=== PATIENT | female | born 1985 | race Two or more races ===

== ENCOUNTER 2022-04-09 22:00 | Emergency (ER) | payer OTHER, MEDICAID ==
[~2022-04-09] VITALS: Ht 162.6 cm; Wt 60.0 kg
[2022-04-09 22:50] VITALS: BP 158/67
== END 2022-04-09 22:38 | disposition left against medical advice (07) ==
LOC: EDBD 22:00 → ER 22:00
DX: F41.9 Anxiety disorder, unspecified (principal); R11.2 Nausea with vomiting, unspecified; Z53.21 Procedure and treatment not carried out due to patient leaving prior to being seen by health care provider

== ENCOUNTER 2024-06-23 12:58 | Inpatient (IN) | payer OTHER, MEDICAID ==
[~2024-06-23] VITALS: Ht 165.1 cm; Wt 61.5 kg
--- NOTE | 2024-06-23 13:05 | ED.PDOC ---
History of Present Illness HPI Comments 39-year-old female brought by paramedics because of nausea vomiting for the past 6 hours. She has been feeling weak since last night. History of lupus fibromyalgia. Her blood pressure on arrival was 136/89 with a heart rate of 94. She is not answering questions well. She feels weak unable to even stand up on her feet. Denies any other symptoms. 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 WINDOW GLASS CUTTER OFF History Social History Smoker: Non-Smoker Alcohol: Denies ETOH Use Drugs: Denies Drug Use Constitutional: reports: weakness; denies: chills, diaphoresis, fatigue, fever, malaise, sweats, others EENTM: denies: blurred vision, double vision, ear bleeding, ear discharge, ear drainage, ear pain, ear ringing, eye pain, eye redness, hearing loss, mouth pain, mouth swelling, nasal discharge, nose bleeding, nose congestion, nose pain, photophobia, tearing, throat pain, throat swelling, voice changes, others Respiratory: denies: cough, hemoptysis, orthopnea, SOB at rest, shortness of breath, SOB with excertion, stridor, wheezing, others Cardiovascular: denies: chest pain, dizzy spells, diaphoresis, Dyspnea on exertion, edema, irregular heart beat, left arm pain, lightheadedness, palpitations, PND, syncope, others Gastrointestinal: reports: nausea, vomiting; denies: abdomen distended, abdominal pain, blood streaked bowels, constipated, diarrhea, dysphagia, difficulty swallowing, hematemesis, melena, poor appetite, poor fluid intake, rectal bleeding, rectal pain, others Genitourinary: denies: abnormal vagina bleeding, burning, dyspareunia, dysuria, flank pain, frequency, hematuria, incontinence, pain, , vagina discharge, urgency, others Neurological: denies: dizziness, fainting, headache, left sided numbness, left sided weakness, numbness, paresthesia, pre-existing deficit, right sided numbness, right sided weakness, seizure, speech problems, tingling, tremors, weakness, others Musculoskeletal: denies: back pain, gout, joint pain, joint swelling, muscle pain, muscle stiffness, neck pain, others Integumetry: denies: bruises, change in color, change in hair/nails, dryness, laceration, lesions, lumps, rash, wounds, others Allergic/Immunocompromised: denies: Difficulty Healing, Frequent Infections, Hives, Itching, others Hematologic/Lymphatic: denies: anemia, blood clots, easy bleeding, easy bruising, swollen glands, others Endocrine: denies: excessive hunger, excessive sweating, excessive thirst, excessive urination, flushing, intolerance to cold, intolerance to heat, unexplained weight gain, unexplained weight loss, others Psychiatric: denies: anxiety, bipolar disorder, depression, hopeless, panic disorder, schizophrenia, sleepless, suicidal, others Physical Exam General Appearance: Moderate Distress HEENT: Normal ENT Inspection, Pharynx Normal, TMs Normal Neck: Full Range of Motion, Non-Tender, Normal, Normal Inspection Respiratory: Chest Non-Tender, Lungs Clear, No Accessory Muscle Use, No Respiratory Distress, Normal Breath Sounds Cardiovascular: No Edema, No JVD, No Murmur, No Gallop, Normal Peripheral Pulses, Regular Rate/Rhythm Breast Exam: Deferred Gastrointestinal: No Organomegaly, Non Tender, No Pulsatile Mass, Normal Bowel Sounds, Soft Genitalia: Deferred Pelvic: Deferred Rectal: Deferred Extremities: No calf tenderness, Normal capillary refill, Normal inspection, Normal range of motion, Non-tender, No pedal edema Musculoskeletal : Apperance: Normal Neurologic: Alert, No Motor Deficits, No Sensory Deficits Cerebellar Function: NOT DONE Reflexes: NOT DONE Skin: Dry, Normal Color, Warm Peripheral Pulses: 3+ Radial (R), 3+ Radial (L) Lymphatic: No Adenopathy Was a procedure done? Was a procedure done?: No Differential Dx Considerations may include: Generalized weakness Electrolyte imbalance X-Ray, Labs, Meds, VS Vital Signs Date Time Temp Pulse Resp B/P (MAP) Pulse Ox O2 Delivery O2 Flow Rate FiO2 06/23/24 15:05 99.0 103 16 148/75 (99) 99 99.0 06/23/24 15:05 103 16 99 Room Air 06/23/24 13:12 99.7 94 20 136/85 (102) 100 Lab Test 06/23/24 14:18 Range/Units White Blood Count 8.1 4.4-10.8 10^3/uL Red Blood Count 4.31 4.0-5.20 10^6/uL Hemoglobin 14.3 12.2-16.2 g/dL Hematocrit 43.4 36.0-46.0 % Mean Corpuscular Volume 100.7 H 80.0-100.0 fL Mean Corpuscular Hemoglobin 33.3 H 28.0-32.0 pg Mean Corpuscular Hemoglobin Concent 33.0 32.0-36.0 g/dL Red Cell Distribution Width 14.6 H 11.8-14.3 % Platelet Count 163 140-450 10^3/uL Mean Platelet Volume 8.2 6.9-10.8 fL Neutrophils (%) (Auto) 86.9 H 37.0-80.0 % Lymphocytes (%) (Auto) 7.8 L 10.0-50.0 % Monocytes (%) (Auto) 4.5 0.0-12.0 % Eosinophils (%) (Auto) 0.7 0.0-7.0 % Basophils (%) (Auto) 0.1 0.0-2.0 % Neutrophils # (Auto) 7.0 1.6-8.6 10 ^3/uL Lymphocytes # (Auto) 0.6 0.4-5.4 10 ^3/uL Monocytes # (Auto) 0.4 0-1.3 10 ^3/uL Eosinophils # (Auto) 0.1 0-0.8 10 ^3/uL Basophils # (Auto) 0 0-0.2 10 ^3/uL Nucleated Red Blood Cells 0.2 % Sodium Level Pending Potassium Level Pending Chloride Level Pending Carbon Dioxide Level Pending Anion Gap Pending Blood Urea Nitrogen Pending Creatinine Pending Glomerular Filtration Rate Calc Pending BUN/Creatinine Ratio Pending Serum Glucose Pending Calcium Level Pending Current Medications Medications (Trade) Dose Ordered Sig/Maria Luz Route Start Time Stop Time Status Last Admin Sodium Chloride 1,000 ml @ 1,000 mls/hr Q1H ONCE IV 06/23/24 13:15 06/23/24 14:14 DC 06/23/24 13:15 Ondansetron HCl (Zofran) 4 mg ONCE ONCE IV 06/23/24 13:15 06/23/24 13:16 DC 06/23/24 15:06 Patient alert. Complaining of generalized weakness nausea vomiting. Vitals stable. Answering all questions. History of lupus. Establish intravenous access. Was given fluids. Was given Zofran. Reviewed her previous visit. Explained to the patient. Continue monitoring. Time of 1ST Reevaluation: 13:04 Reevaluation 1ST: Unchanged Patient Education/Counseling: Diagnosis, Treatment, Prognosis Family Education/Counseling: No Family Present Departure 1 Departure Time of Disposition: 13:05 Impression: Primary Impression: Generalized weakness Additional Impression: Gastroenteritis Disposition: ADMITTED INPATIENT Admit to: Med Surg Condition: Guarded Critical Care Note Critical Care Time?: No Stability Stability form required: No Heart Score Heart Score: Heart Score Response (Comments) Value History N/A 0 EKG N/A 0 Age N/A 0 Risk Factors N/A 0 Troponin N/A 0 Total 0 NELI MCKAY MD Jun 23, 2024 13:05
[2024-06-23] MEDS: SODIUM CHLORIDE 0.9% 1,000 ML IV ONE ×2 (13:15→18:24)
[2024-06-23 14:51] LABS: Basophils # (auto) 0 10 ^3/uL (0-0.2); Basophils % (auto) 0.1 % (0.0-2.0); Eosinophils # (auto) 0.1 10 ^3/uL (0-0.8); Eosinophils % (auto) 0.7 % (0.0-7.0); Hematocrit 43.4 % (36.0-46.0); Hemoglobin 14.3 g/dL (12.2-16.2); Lymphocytes # (auto) 0.6 10 ^3/uL (0.4-5.4); Lymphocytes % (auto) 7.8 % (10.0-50.0); Mean Corpuscular Hemoglobin 33.3 pg (28.0-32.0); Mean Corpuscular Volume 100.7 fL (80.0-100.0); Monocytes # (auto) 0.4 10 ^3/uL (0-1.3); Monocytes % (auto) 4.5 % (0.0-12.0); Neutrophils % (auto) 86.9 % (37.0-80.0); Nucleated Red Blood Cells % 0.2 %; Platelet Count (auto) 163 10^3/uL (140-450); Red Blood Cells 4.31 10^6/uL (4.0-5.20); Red Cell Distribution Width 14.6 % (11.8-14.3); White Blood Cell 8.1 10^3/uL (4.4-10.8)
[2024-06-23] MEDS: ONDANSETRON HCL 4 MG/2 ML VIAL IV ONE ×2 (15:06→17:01)
[2024-06-23 15:10] LABS: Chloride 104 mmol/L (98-107); Sodium 140 mmol/L (136-145)
[2024-06-23 15:11] LABS: Anion Gap 15 (5-15); Carbon Dioxide 21 mmol/L (20-31)
[2024-06-23 15:16] LABS: BUN/Creatinine Ratio 18.9 (10.0-20.0); Blood Urea Nitrogen 18 mg/dL (9-23)
[2024-06-23 15:30] LABS: Calcium 10.4 mg/dL (8.7-10.4); Glucose 146 mg/dL (74-106)
[2024-06-23 15:31] LABS: Urine Bacteria None Seen /hpf (None Seen)
[2024-06-23 15:39] LABS: Urine Blood Negative /uL (Negative); Urine Clarity Turbid (Clear); Urine Color Light-Yellow (Yellow); Urine Protein, UAD Negative (Negative); Urine Specific Gravity 1.014 (1.001-1.035); Urine Squamous Epithelial Cell MOD /hpf (<5); Urine Urobilinogen Normal (Negative); Urine WBC 3 /HPF (0-5)
[2024-06-23] MEDS: METOCLOPRAMIDE HCL 5MG/ml INJ 2ml VIAL IV ONE (18:19)
[2024-06-23 19:03] VITALS: RESP 16
[2024-06-23 21:00] VITALS: RESP 16
[2024-06-23] MEDS: SODIUM CHLORIDE 0.9% 1,000 ML IV SCH (21:45)
[2024-06-23 21:59] LABS: Amphetamine Screen, Urine Neg (NEGATIVE); Barbiturate Scree,Urine Neg (NEGATIVE); Benzodiazephine Screen, Urine Pos (NEGATIVE); Cannabinoid Screen, Urine Pos (NEGATIVE); Cocaine Screen, Urine Neg (NEGATIVE); Opiate Scree,Urine Neg (NEGATIVE); Phencyclidine Screen, Urine Neg (NEGATIVE)
[2024-06-23] MEDS: MORPHINE SULFATE INJ 2 MG/ml SYRG IV SCH (22:25)
[2024-06-23] MEDS: PANTOPRAZOLE 40 MG/10 ML VIAL INJ IV SCH (22:25)
--- NOTE | 2024-06-23 22:49 | DVHHPRES ---
History of Present Illness Resident Creating Document: RON GOINS RESIDENT Reason for Visit: Intractable vomiting History of Present Illness 39-year-old female with past medical history of lupus diagnosed in 2011, fibromyalgia, Aldana syndrome, presented to ED with acute onset of severe vomiting and abdominal pain after consuming Hummus from a [employer] yesterday afternoon. Symptoms began this morning with initial nausea, progressing to vomiting approximately 20 times throughout the day. Associated symptoms include generalized weakness and severe abdominal pain, rated 8/10. Pain is diffuse of hold abdomen and nonradiating, pain is better when she lies down flat. LMP May 22 week, Patient denies any fever chills, constipation, diarrhea, dysuria, cough or shortness of breath. Patient admits aging of cannabis gummies for chronic pain due to fibromyalgia. Home medications: Hydroxyzine Pamoate, alprazolam, lurasidone, Xanax, buspirone, hydrochlorothiazide, sertraline. Past Medical History lupus diagnosed in 2011, fibromyalgia, Aldana syndrome Past Surgical History No significant surgical history Past Social History Patient denies smoking, occasional alcohol drinking, using cannabis gummies for chronic pain. Review of Systems Review of Systems CONSTITUTIONAL: Denies weight loss, fever and chills. HEENT: Denies changes in vision and hearing. RESPIRATORY: Denies SOB and cough. CV: Denies palpitations and chest pain. GI: Admits abdominal pain, nausea, vomiting . Denies constipation, diarrhea : Denies dysuria and urinary frequency. MSK: Denies myalgia and joint pain. SKIN: Denies rash and pruritus. NEUROLOGICAL: Denies headache Allergies: Coded Allergies: NO KNOWN ALLERGIES (Unverified , 04/09/22) Medications Current Medications Medications Dose Ordered Sig/Maria Luz Route Start Time Stop Time Status Last Admin Dose Admin Sodium Chloride 1,000 ml @ 100 mls/hr Q10H IV 06/23/24 21:45 06/23/24 21:45 100 MLS/HR Ondansetron HCl 4 mg Q4HP PRN IV 06/23/24 21:45 Morphine Sulfate 1 mg Q8HR IV 06/23/24 22:00 06/23/24 22:25 1 MG Pantoprazole Sodium 40 mg DAILY IV 06/23/24 21:45 06/23/24 22:25 40 MG Exam Vital Signs Vital Signs Date Time Temp Pulse Resp B/P (MAP) Pulse Ox O2 Delivery O2 Flow Rate FiO2 06/23/24 22:25 120 17 132/84 06/23/24 21:50 100.4 98 100.4 06/23/24 19:03 Room Air* 0 21 Exam GENERAL: In mild distress. HEENT: EOMI, Moist mucous membranes. No scleral icterus. No cervical lymphadenopathy. LUNGS: Clear to auscultation bilaterally. No accessory muscle use. CARDIOVASCULAR: Regular rate and rhythm. No murmur. No JVD. ABDOMEN: Diffuse Tenderness noted palpation EXTREMITIES: No edema. Nontender. SKIN: No rashes or lesions. Warm. NEUROLOGIC: Alert and oriented X3, focal deficits. Labs/Xrays Labs Test 06/23/24 14:50 06/23/24 14:18 Range/Units Urine Color Light-yellow Yellow Urine Clarity Turbid H Clear Urine pH 6.0 5.0-9.0 Urine Specific [place] 1.014 1.001-1.035 Urine Protein Negative Negative Urine Ketones 1+ H Negative Urine Blood Negative Negative /uL Urine Nitrite Negative Negative Urine Bilirubin Negative Negative Urine Urobilinogen Normal Negative mg/dL Urine Leukocyte Esterase Negative Negative /uL Urine RBC 2 0 - 4 /hpf Urine Microscopic WBC 3 0-5 /HPF Urine Squamous Epithelial Cells Mod <5 /hpf Urine Bacteria None seen None Seen /hpf Urine Glucose Normal Normal mg/dL Urine Test Negative Negative Urine Opiates Screen Neg NEGATIVE Urine Fentanyl Screen Neg NEGATIVE Urine Barbiturates Screen Neg NEGATIVE Urine Phencyclidine Screen Neg NEGATIVE Urine Amphetamines Screen Neg NEGATIVE Urine Benzodiazepines Screen Pos NEGATIVE Urine Cocaine Screen Neg NEGATIVE Urine Cannabinoids Screen Pos NEGATIVE White Blood Count 8.1 4.4-10.8 10^3/uL Red Blood Count 4.31 4.0-5.20 10^6/uL Hemoglobin 14.3 12.2-16.2 g/dL Hematocrit 43.4 36.0-46.0 % Mean Corpuscular Volume 100.7 H 80.0-100.0 fL Mean Corpuscular Hemoglobin 33.3 H 28.0-32.0 pg Mean Corpuscular Hemoglobin Concent 33.0 32.0-36.0 g/dL Red Cell Distribution Width 14.6 H 11.8-14.3 % Platelet Count 163 140-450 10^3/uL Mean Platelet Volume 8.2 6.9-10.8 fL Neutrophils (%) (Auto) 86.9 H 37.0-80.0 % Lymphocytes (%) (Auto) 7.8 L 10.0-50.0 % Monocytes (%) (Auto) 4.5 0.0-12.0 % Eosinophils (%) (Auto) 0.7 0.0-7.0 % Basophils (%) (Auto) 0.1 0.0-2.0 % Neutrophils # (Auto) 7.0 1.6-8.6 10 ^3/uL Lymphocytes # (Auto) 0.6 0.4-5.4 10 ^3/uL Monocytes # (Auto) 0.4 0-1.3 10 ^3/uL Eosinophils # (Auto) 0.1 0-0.8 10 ^3/uL Basophils # (Auto) 0 0-0.2 10 ^3/uL Nucleated Red Blood Cells 0.2 % Sodium Level 140 136-145 mmol/L Potassium Level 4.0 3.5-5.1 mmol/L Chloride Level 104 98-107 mmol/L Carbon Dioxide Level 21 20-31 mmol/L Anion Gap 15 5-15 Blood Urea Nitrogen 18 9-23 mg/dL Creatinine 0.95 0.550-1.02 mg/dL Glomerular Filtration Rate Calc 77 >90 mL/min BUN/Creatinine Ratio 18.9 10.0-20.0 Serum Glucose 146 H 74-106 mg/dL Calcium Level 10.4 8.7-10.4 mg/dL Assessment/Plan Assessment/Plan # possible gastroenteritis with intractable vomiting and abdominal pain # possible food poisoning # possible cannabis induced hyperemesis syndrome # SIRS ( Temperature 100.4 F, HR 120) - normal saline IV 1 L bolus - maintenance NS - Zofran for vomiting - pain management - NPO for now - Protonix 40 mg IV daily # H/O lupus # H/O Aldana syndrome # Fibromyalgia - conservative treatments -follow up CBC for thrombocytopenia # Hypertension - patient is on home medication hydrochlorothiazide 12.5 mg/daily - monitor BP # Anxiety disorder - patient is on buspirone, Xanax, alprazolam - monitor Goal of care discussed with patient for 37 minutes: Full code Case discussed with Dr. Alanis Plan discussed with: Patient My Orders Orders - RON GOINS RESIDENT Procedure Category Date Status Time Admit ADMIT 06/23/24 Transmitted 21:44 Sodium Chloride 0.9% PHA 06/23/24 In Process 21:45 Ondansetron Hcl PHA 06/23/24 In Process (Zofran) 21:45 Morphine Sulfate PHA 06/23/24 In Process Injection 22:00 Pantoprazole PHA 06/23/24 In Process (Protonix) 21:45 Beta Hcg, Quantitative LAB 06/23/24 In Process 22:15 Thyroid Stimulating LAB 06/23/24 In Process Hormone 22:16 Magnesium LAB 06/23/24 In Process 22:16 Date of Service: Jun 24, 2024 Billing Provider: SHANTELLE ALANIS MD Common Visit Codes: [id number] INP/OBS CARE (HIGH) RON GOINS RESIDENT Jun 23, 2024 22:49 SHANTELLE ALANIS MD Jun 27, 2024 08:53
[2024-06-23 22:53] VITALS: BP 132/84; PULSE 117; PULSE 120; RESP 16; RESP 18; TEMP 100.4; O2SAT 95; O2SAT 98
[2024-06-23] MEDS ORDERED: HYDR12.55 (23:16)
[2024-06-23] MEDS ORDERED: ALPR1TAB7 (23:16)
[2024-06-23] MEDS ORDERED: SERT-160 (23:16)
[2024-06-23] MEDS ORDERED: HYDR1CAP27 (23:16)
[2024-06-23] MEDS ORDERED: LURA40TA3 (23:16)
[2024-06-23] MEDS ORDERED: BUSP30TA (23:16)
[2024-06-24] VITALS (8 sets, daily range): BP systolic 124–171; BP diastolic 77–102; PULSE 83–117; RESP 18–20; TEMP 97.8–99.6; O2SAT 95–100
[2024-06-24] MEDS: SODIUM CHLORIDE 0.9% 1,000 ML IV ONE (00:30)
[2024-06-24] MEDS: MAGNESIUM SULFATE 1GM/100ML 100 ML IV SCH (02:17)
[2024-06-24] MEDS: MORPHINE SULFATE INJ 2 MG/ml SYRG IV ONE (02:18)
[2024-06-24] MEDS: ONDANSETRON HCL 4 MG/2 ML VIAL IV PRN (02:25)
[2024-06-24 08:46] LABS: Basophils # (auto) 0 10 ^3/uL (0-0.2); Basophils % (auto) 0.2 % (0.0-2.0); Eosinophils # (auto) 0 10 ^3/uL (0-0.8); Eosinophils % (auto) 0.1 % (0.0-7.0); Hematocrit 33.7 % (36.0-46.0); Hemoglobin 11.5 g/dL (12.2-16.2); Lymphocytes # (auto) 0.8 10 ^3/uL (0.4-5.4); Lymphocytes % (auto) 16.6 % (10.0-50.0); Mean Corpuscular Hemoglobin 33.8 pg (28.0-32.0); Mean Corpuscular Hgb Conc. 34.2 g/dL (32.0-36.0); Mean Corpuscular Volume 98.9 fL (80.0-100.0); Monocytes # (auto) 0.4 10 ^3/uL (0-1.3); Monocytes % (auto) 8.7 % (0.0-12.0); Neutrophils # (auto) 3.4 10 ^3/uL (1.6-8.6); Neutrophils % (auto) 74.4 % (37.0-80.0); Nucleated Red Blood Cells % 0.1 %; Platelet Count (auto) 136 10^3/uL (140-450); Red Cell Distribution Width 14.2 % (11.8-14.3); White Blood Cell 4.6 10^3/uL (4.4-10.8)
[2024-06-24 09:04] LABS: Albumin 3.9 g/dL (3.2-4.8); Alkaline Phosphatase 53 U/L (46-116); Anion Gap 9 (5-15); Aspartate Aminotransferase 25 U/L (13-40); BUN/Creatinine Ratio 8.5 (10.0-20.0); Carbon Dioxide 23 mmol/L (20-31); Glucose 101 mg/dL (74-106); Sodium 140 mmol/L (136-145)
[2024-06-24 09:05] LABS: Alanine Aminotransferase 48 U/L (7-40); Bilirubin, Total 0.9 mg/dL (0.2-1.0); Blood Urea Nitrogen 7 mg/dL (9-23); Calcium 8.6 mg/dL (8.7-10.4); Chloride 108 mmol/L (98-107); Potassium 3.2 mmol/L (3.5-5.1); Total Protein 6.6 g/dL (5.7-8.2)
[2024-06-24] MEDS: METOCLOPRAMIDE HCL 5MG/ml INJ 2ml VIAL IV ONE (11:35)
[2024-06-24 12:01] LABS: COVID19 ANTIGEN SOFIA FIA NEGATIVE (NEGATIVE); Rapid Influenza A Negative (Negative); Rapid Influenza B Negative (Negative)
[2024-06-24 13:26] LABS: Triglycerides 73 mg/dL (< 150)
[2024-06-24 13:27] LABS: LDL Cholesterol 81 mg/dL (< 100)
[2024-06-24 13:28] LABS: Cholesterol 146 mg/dL (< 200)
[2024-06-24 13:29] LABS: HDL Cholesterol 48 mg/dL (40-59)
[2024-06-24] MEDS: ACETAMINOPHEN 325 MG TAB PO PRN (13:38)
[2024-06-24] MEDS: MORPHINE SULFATE INJ 2 MG/ml SYRG IV PRN (13:39)
--- NOTE | 2024-06-24 13:51 | DVH ---
ULTRASOUND ABDOMEN LIMITED INDICATION: cholelithiasis TECHNIQUE: Multiple real-time sonographic images of the abdomen were obtained. COMPARISON: None FINDINGS: The visualized liver parenchyma appears homogenous . The liver measures 15 cm. No discrete hep atic lesion or intrahepatic biliary ductal dilatation is identified. There is no evidence of gallstones, gallbladder wall thickening or pericholecystic fluid. The common biliary duct is not dilated. The right kidney measures 9.2 cm length. No sonographic evidence of nephrolithiasis or hydronephros is. Visualized portions of the pancreas appears within normal limits. IMPRESSION: 1. Unremarkable righ upper quadrant ultrasound. HS:Y
[2024-06-24 13:52] LABS: Lipase 22 U/L (12-53)
--- NOTE | 2024-06-24 14:50 | DVHPNRES ---
Progress Note Date Seen: Jun 24, 2024 Resident Creating Document: MARKUS TORRESJAYLENEISABELL RESIDENT Medical Necessity Reason Pt with a Central, PICC or Fol: No Subjective Review of Systems Patient is a 39-year-old female with past medical history of lupus diagnosed in 2011, fibromyalgia, Aldana syndrome, presented to ED with acute onset of severe vomiting and abdominal pain after consuming Hummus from a [employer] on monday evening. Symptoms began on monday morning with initial nausea, progressing to vomiting approximately 20 times throughout the day, which consisted of undigested food particles and eventually dry heaving. Patient was not able to keep anything down. Associated symptoms include generalized weakness and severe abdominal pain, rated 8/10. Pain was diffuse across the whole abdomen and nonradiating, pain is better when she lies down flat. LMP May 22 week, Patient denies any fever chills, constipation, diarrhea, dysuria, cough or shortness of breath. Patient admits usinfg cannabis gummies for chronic pain due to fibromyalgia. Past Medical History: Lupus diagnosed in 2011, fibromyalgia, Aldana syndrome Past Surgical History: No significant surgical history Past Social History: Patient denies smoking, occasional alcohol drinking, using cannabis gummies for chronic pain. Home medications: hydroxychloroquine 200mg qd, alprazolam 1 mg hs, lurasidone, sertraline. Review of systems Patient is seen and examined at the bedside Patient reported nausea but no episode of vomiting since she came to the hospital. In the morning patient was NPO on ice chips, diet progressed to clear liquid and patient will be monitored for tolerance Reported diffuse abdominal pain 6/10 on intensity, more in the epigastrium but nonradiating Denied diarrhea, constipation, cough, shortness of breath, fever or chills. Objective vital signs Vital Sign Date Time Temp Pulse Resp B/P (MAP) Pulse Ox O2 Delivery O2 Flow Rate FiO2 06/24/24 13:39 97 18 128/83 06/24/24 13:00 98.2 96 98.2 06/24/24 08:00 Room Air* 0 21 Total Intake and Output 06/23/24 06/23/24 06/24/24 15:00 23:00 07:00 Intake Total 100 ml Balance 100 ml medications Current Medications Medications Dose Ordered Sig/Maria Luz Route Start Time Stop Time Status Last Admin Dose Admin Sodium Chloride 1,000 ml @ 100 mls/hr Q10H IV 06/23/24 21:45 06/23/24 21:45 100 MLS/HR Ondansetron HCl 4 mg Q4HP PRN IV 06/23/24 21:45 06/24/24 06:24 4 MG Pantoprazole Sodium 40 mg DAILY IV 06/23/24 21:45 06/23/24 22:25 40 MG Morphine Sulfate 1 mg Q8HP PRN IV 06/24/24 13:00 06/24/24 13:39 1 MG Acetaminophen 650 mg Q6HP PRN PO 06/24/24 13:00 06/24/24 13:38 650 MG Examination Physical Examination Constitutional: Patient is alert and oriented to time, place and person and is in mild distress because of the abdominal pain Gen - no pallor, no icterus, no cyanosis, no clubbing, no LAD, no edema . Skin - Patients skin is warm and dry.. HEENT - normocephalic, atraumatic, dry mucous membranes. Neck - full ROM, no LAD, no JVD. Pulmonary - B/L vesicular breath sounds. no crackles , no wheezing cardiovascular - normal S1,S2 heard. no murmurs heard. peripheral pulses normal radial 2+, pedal 2+. GI - soft abdomen with diffuse pressure-like sensation to palpation and tenderness to vision in the right upper quadrant . no hepatospleenomegaly. Bowel sounds normoactive - no CVA tenderness Neurological - Bilateral upper extremity strength 5/5, bilateral lower extremity strength 5/5, no facial droop, normal speech, no tremor, no sensory deficiets. laboratory and microbiology Laboratory Tests 06/24/24 08:26 Test 06/24/24 08:26 Range/Units Serum Glucose 101 74-106 mg/dL Problem List/Assessment/Plan Problem List/Assessment/Plan # Acute gastroenteritis with intractable vomiting and abdominal pain likely due to food poisoning # Possible cannabis induced hyperemesis syndrome # SIRS ( Temperature 100.4 F, HR 120) # R/o cholelithiasis, pancreatitis - lipase WNL, pain localized to the epigastrium and diffuse in the abdomen not radiating to back - right upper quadrant ultrasound was unremarkable - NS total 3 L bolus given - on maintenance IV NS at 100 mL/hour - Zofran and metoclopramide for vomiting - diet advanced to clear liquid, tolerating well - Protonix 40 mg IV daily # H/O lupus # H/O Aldana syndrome # Fibromyalgia - conservative treatments - follow up CBC for thrombocytopenia - pain control with acetaminophen and morphine p.r.n. # Hypertension - home medication held - monitor blood pressure # generalized anxiety disorder - started on low-dose alprazolam 1 mg daily hs Goal of care discussed with patient for 27 minutes. Full code Case discussed with Dr. Alanis Plan discussed with: Patient, Spouse (sid) My Orders My Orders Orders - STAN TORRES Procedure Category Date Status Time Morphine Sulfate PHA 06/24/24 In Process Injection 13:00 Clear Liq Diet DIET 06/24/24 Transmitted Lunch Acetaminophen Tablet PHA 06/24/24 In Process (Tylenol Tablet) 13:00 Gallbladder US 06/24/24 Resulted 12:50 Date of Service: Jun 24, 2024 Billing Provider: SHANTELLE ALANIS MD Common Visit Codes: [id number] INP/OBS CARE(HIGH) STAN TORRES RESIDENT Jun 24, 2024 14:50 SHANTELLE ALANIS MD Jun 27, 2024 08:55
[2024-06-24] MEDS ORDERED: METOCLOPRAMIDE HCL 5MG/ml INJ 2ml VIAL IV PRN (15:30)
[2024-06-24] MEDS: KETOROLAC TROMETH 30 MG/ML 1ML VIAL IV ONE (18:00)
[2024-06-24] MEDS: SERTRALINE HCL 50 MG TAB PO SCH (20:48)
[2024-06-24] MEDS: ALPRAZolam 0.5 MG TAB PO SCH (20:48)
[2024-06-25 01:00] VITALS: BP 145/87; PULSE 80; RESP 18; TEMP 97.8; O2SAT 99
[2024-06-25 05:00] VITALS: BP 134/80; PULSE 69; RESP 18; TEMP 97.8; O2SAT 97
[2024-06-25 07:38] LABS: Basophils # (auto) 0 10 ^3/uL (0-0.2); Basophils % (auto) 0.1 % (0.0-2.0); Eosinophils # (auto) 0 10 ^3/uL (0-0.8); Eosinophils % (auto) 1.5 % (0.0-7.0); Hematocrit 35.9 % (36.0-46.0); Hemoglobin 12.3 g/dL (12.2-16.2); Lymphocytes # (auto) 0.9 10 ^3/uL (0.4-5.4); Mean Corpuscular Hgb Conc. 34.2 g/dL (32.0-36.0); Mean Corpuscular Volume 99.4 fL (80.0-100.0); Monocytes # (auto) 0.3 10 ^3/uL (0-1.3); Monocytes % (auto) 12.2 % (0.0-12.0); Neutrophils # (auto) 1.3 10 ^3/uL (1.6-8.6); Neutrophils % (auto) 50.2 % (37.0-80.0); Nucleated Red Blood Cells % 0.1 %; Platelet Count (auto) 149 10^3/uL (140-450); Red Blood Cells 3.61 10^6/uL (4.0-5.20); Red Cell Distribution Width 14.2 % (11.8-14.3); White Blood Cell 2.6 10^3/uL (4.4-10.8)
[2024-06-25 08:15] VITALS: PULSE 89; RESP 17; O2SAT 97
[2024-06-25 09:03] LABS: Anion Gap 11 (5-15); Carbon Dioxide 23 mmol/L (20-31); Sodium 143 mmol/L (136-145)
[2024-06-25 09:05] LABS: Calcium 9.4 mg/dL (8.7-10.4)
[2024-06-25 09:08] LABS: Chloride 109 mmol/L (98-107); Potassium 3.2 mmol/L (3.5-5.1)
[2024-06-25 09:09] LABS: BUN/Creatinine Ratio 8.3 (10.0-20.0); Glucose 76 mg/dL (74-106)
[2024-06-25 09:25] LABS: Blood Urea Nitrogen 7 mg/dL (9-23)
[2024-06-25 09:44] VITALS: BP 137/76; PULSE 89; RESP 17; TEMP 98; O2SAT 97
[2024-06-25] MEDS ORDERED: FAMO20TA10 PO (11:32)
[2024-06-25] MEDS ORDERED: ZOFR4T PO (11:32)
[2024-06-25 12:56] VITALS: BP 139/85; PULSE 74; RESP 19; TEMP 98.2; O2SAT 96
--- NOTE | 2024-06-25 19:35 | DVHDSRES ---
Discharge Summary Date of Admission Resident Creating Document: STAN TORRES RESIDENT Jun 23, 2024 at 21:44 Date of Discharge: Jun 25, 2024 Admitting Diagnosis # possible gastroenteritis with intractable vomiting and abdominal pain # possible food poisoning # possible cannabis induced hyperemesis syndrome # SIRS ( Temperature 100.4 F, HR 120) # H/O lupus # H/O Aldana syndrome # Fibromyalgia # Hypertension # Anxiety disorder Wounds: none Labs/Diagnostic Data: Laboratory Results Test 06/25/24 06:39 06/24/24 09:45 06/24/24 08:26 06/24/24 01:02 White Blood Count 2.6 10^3/uL (4.4-10.8) Red Blood Count 3.61 10^6/uL (4.0-5.20) Hemoglobin 12.3 g/dL (12.2-16.2) Hematocrit 35.9 % (36.0-46.0) Mean Corpuscular Volume 99.4 fL (80.0-100.0) Mean Corpuscular Hemoglobin 34.0 pg (28.0-32.0) Mean Corpuscular Hemoglobin Concent 34.2 g/dL (32.0-36.0) Red Cell Distribution Width 14.2 % (11.8-14.3) Platelet Count 149 10^3/uL (140-450) Mean Platelet Volume 7.7 fL (6.9-10.8) Neutrophils (%) (Auto) 50.2 % (37.0-80.0) Lymphocytes (%) (Auto) 36.0 % (10.0-50.0) Monocytes (%) (Auto) 12.2 % (0.0-12.0) Eosinophils (%) (Auto) 1.5 % (0.0-7.0) Basophils (%) (Auto) 0.1 % (0.0-2.0) Neutrophils # (Auto) 1.3 10 ^3/uL (1.6-8.6) Lymphocytes # (Auto) 0.9 10 ^3/uL (0.4-5.4) Monocytes # (Auto) 0.3 10 ^3/uL (0-1.3) Eosinophils # (Auto) 0 10 ^3/uL (0-0.8) Basophils # (Auto) 0 10 ^3/uL (0-0.2) Nucleated Red Blood Cells 0.1 % Sodium Level 143 mmol/L (136-145) Potassium Level 3.2 mmol/L (3.5-5.1) Chloride Level 109 mmol/L (98-107) Carbon Dioxide Level 23 mmol/L (20-31) Anion Gap 11 (5-15) Blood Urea Nitrogen 7 mg/dL (9-23) Creatinine 0.84 mg/dL (0.550-1.02) Glomerular Filtration Rate Calc 89 mL/min (>90) BUN/Creatinine Ratio 8.3 (10.0-20.0) Serum Glucose 76 mg/dL (74-106) Calcium Level 9.4 mg/dL (8.7-10.4) Influenza Type A Antigen Negative (Negative) Influenza Type B Antigen Negative (Negative) SARS-CoV-2 Antigen (Rapid) Negative (NEGATIVE) Total Bilirubin 0.9 mg/dL (0.2-1.0) Aspartate Amino Transferase (AST) 25 U/L (13-40) Alanine Aminotransferase (ALT) 48 U/L (7-40) Alkaline Phosphatase 53 U/L (46-116) Total Protein 6.6 g/dL (5.7-8.2) Albumin 3.9 g/dL (3.2-4.8) Triglycerides Level 73 mg/dL (< 150) Cholesterol Level 146 mg/dL (< 200) LDL Cholesterol 81 mg/dL (< 100) HDL Cholesterol 48 mg/dL (40-59) Lipase 22 U/L (12-53) Lactic Acid Level 0.8 mmol/L (0.4-2.0) Test 06/23/24 14:50 06/23/24 14:18 Urine Color Light-yellow (Yellow) Urine Clarity Turbid (Clear) Urine pH 6.0 (5.0-9.0) Urine Specific [place] 1.014 (1.001-1.035) Urine Protein Negative (Negative) Urine Ketones 1+ (Negative) Urine Blood Negative /uL (Negative) Urine Nitrite Negative (Negative) Urine Bilirubin Negative (Negative) Urine Urobilinogen Normal mg/dL (Negative) Urine Leukocyte Esterase Negative /uL (Negative) Urine RBC 2 /hpf (0 - 4) Urine Microscopic WBC 3 /HPF (0-5) Urine Squamous Epithelial Cells Mod /hpf (<5) Urine Bacteria None seen /hpf (None Seen) Urine Glucose Normal mg/dL (Normal) Urine Test Negative (Negative) Urine Opiates Screen Neg (NEGATIVE) Urine Fentanyl Screen Neg (NEGATIVE) Urine Barbiturates Screen Neg (NEGATIVE) Urine Phencyclidine Screen Neg (NEGATIVE) Urine Amphetamines Screen Neg (NEGATIVE) Urine Benzodiazepines Screen Pos (NEGATIVE) Urine Cocaine Screen Neg (NEGATIVE) Urine Cannabinoids Screen Pos (NEGATIVE) Magnesium Level 1.6 mg/dL (1.6-2.6) Thyroid Stimulating Hormone (TSH) 4.02 uIU/mL (0.55-4.78) Beta HCG, Quantitative 0.3 mIU/mL (1.5-4.2) Other Laboratory Tests 06/25/24 06:39 Brief Hx & Hospital Course: Patient is a 39-year-old female with past medical history of lupus diagnosed in 2011, fibromyalgia, Aldana syndrome, presented to ED with acute onset of severe vomiting and abdominal pain after consuming Hummus from a [employer] on monday evening. Symptoms began on monday morning with initial nausea, progressing to vomiting approximately 20 times throughout the day, which consisted of undigested food particles and eventually dry heaving. Patient was not able to keep anything down. Associated symptoms include generalized weakness and severe abdominal pain, rated 8/10. Pain was diffuse across the whole abdomen and nonradiating, pain is better when she lies down flat. LMP May 22 week, Patient denies any fever chills, constipation, diarrhea, dysuria, cough or shortness of breath. Patient admits usinfg cannabis gummies for chronic pain due to fibromyalgia. Past Medical History: Lupus diagnosed in 2011, fibromyalgia, Aldana syndrome Past Surgical History: No significant surgical history Past Social History: Patient denies smoking, occasional alcohol drinking, using cannabis gummies for chronic pain. Home medications: hydroxychloroquine 200mg qd, alprazolam 1 mg hs, lurasidone, sertraline. Hospital course Patient admitted to the hospital for acute abdominal pain and intractable nausea and vomiting was kept NPO initialy and was given IV fluid hydration. Patient complained of RUQ pain for which Ultrasound of the RUQ was done which was unremarkable. Serum lipase levels were within normal limits. Patient was relieved of vomiting and nausea was managed with IV zofrana and metoclopramide. patient was eventually started on clear liquid diet which she tolerated well. Diet was then further advanced to full liquid diet which she tolerated well and was then discharged home in stable condition. Discharge plan meds- continue on home medications prescribed zofran prn and famotidine for 10 days Follow up with the PCP in one week Consults/Reason for consult none Operations or Procedures GALLBLADDER ULTRASOUND FINDINGS: The visualized liver parenchyma appears homogenous . The liver measures 15 cm. No discrete hepatic lesion or intrahepatic biliary ductal dilatation is identified. There is no evidence of gallstones, gallbladder wall thickening or pericholecystic fluid. The common biliary duct is not dilated. The right kidney measures 9.2 cm length. No sonographic evidence of nephrolithiasis or hydronephrosis. Visualized portions of the pancreas appears within normal limits. IMPRESSION: Unremarkable righ upper quadrant ultrasound. Condition at Discharge: Good Final Diagnosis/Problems List # Acute gastroenteritis with intractable vomiting and abdominal pain likely due to food poisoning # Possible cannabis induced hyperemesis syndrome # SIRS ( Temperature 100.4 F, HR 120) # Ruled out cholelithiasis, pancreatitis # H/O lupus # H/O Aldana syndrome # Fibromyalgia # Hypertension # generalized anxiety disorder Discharge Disposition: Home Discharge Instruct/Medications Diet: Regular Diet comment: Start on smaller meals and advance as tolerated Activity: No Restrictions, As Tolerated Follow Up/Referral: Follow up with the PCP in one week Medications: continue home medications Discharge Statement: "Patient was advised to return to the ER or call 911 if any headaches, dizziness, shortness of breath, chest pain, abdominal pain, bleeding, fevers, or worsening of medical condition. Patient was counseled about treatment plan, medications, possible side effects, patientverbalized understanding. All questions were answered to the best of my ability. This discharge took greater then 30 minutes in planning, reviewing documentation, counseling the patient, and discussing with other team members." ASSESSMENT ASSESSMENT Assessment Acute gastroenteritis with intractable vomiting and abdominal pain likely due to food poisoning Date of Service: Jun 25, 2024 Billing Provider: SHANTELLE SIFUENTES MD Common Visit Codes: 93127-KYF/OBS DISCH DAY >30min STAN TORRES RESIDENT Jun 25, 2024 19:35 SHANTELLE SIFUENTES MD Jun 27, 2024 08:55
== END 2024-06-25 13:15 | disposition home or self-care (01) | DRG 392 ==
LOC: ER 12:58 → EDBD 12:58 → OVERFLOW 21:44 → CENTRAL 23:44
PROVIDERS: ADMIT Student in an Organized Health Care Education/Training Program; ATTEND Student in an Organized Health Care Education/Training Program
DX: A05.9 Bacterial foodborne intoxication, unspecified (principal); R65.10 Systemic inflammatory response syndrome (SIRS) of non-infectious origin without acute organ dysfunction; K52.9 Noninfective gastroenteritis and colitis, unspecified; M79.7 Fibromyalgia; Z20.822 Contact with and (suspected) exposure to COVID-19; I10 Essential (primary) hypertension; F41.1 Generalized anxiety disorder; Z79.899 Other long term (current) drug therapy
CPT/HCPCS: 36415; 76705; 80048; 80053; 80061; 80307; 81001; 81025; 83605; 83690; 83735; 84443; 84702; 85025; 87426; 87804; G0378; J1885; J2405; J2470